=== PATIENT | male | born 1990 | race African-American/Black ===

== ENCOUNTER 2017-04-30 07:14 | Emergency (ER) | payer SELFPAY ==
[~2017-04-30] VITALS: Ht 177.8 cm; Wt 86.0 kg
[2017-04-30 07:16] VITALS: Ht 177.8 cm; Wt 86.0 kg
[2017-04-30] MEDS ORDERED: morphine 4 MG/ML VIAL IV STA ×2 (07:25→09:47)
[2017-04-30] MEDS ORDERED: ONDANSETRON 4 MG INJ IV STA ×2 (07:25→09:47)
[2017-04-30] MEDS ORDERED: SOD CHLORIDE 0.9% 1,000 ML IV ONE (07:43)
[2017-04-30 07:48] LABS: BASOPHILS % 0.2 % (0.0-2.0); EOSINOPHILS # 0.2 10^3/ul (0.0-0.5); EOSINOPHILS % 2.3 % (0.0-7.0); HEMATOCRIT 46.5 % (42.0-52.0); HEMOGLOBIN 15.3 g/dl (14.0-18.0); LYMPHOCYTES # 2.6 10^3/ul (0.8-2.9); LYMPHOCYTES % 27.2 % (15.0-51.0); MEAN CORPUSCULAR HEMOGLOBIN 31.5 pg (29.0-33.0); MEAN CORPUSCULAR HGB CONC 32.9 g/dl (32.0-37.0); MEAN CORPUSCULAR VOLUME 95.7 fl (82.0-101.0); MEAN PLATELET VOLUME 9.6 fl (7.4-10.4); MONOCYTE # 0.8 10^3/ul (0.3-0.9); MONOCYTES % 8.6 % (0.0-11.0); NEUTROPHIL # 5.9 10^3/ul (1.6-7.5); NEUTROPHILS % 61.5 % (39.0-77.0); PLATELET COUNT 250 10^3/UL (140-415); RED BLOOD COUNT 4.86 10^6/ul (4.70-6.10); RED CELL DISTRIBUTION WIDTH 12.7 % (11.5-14.5); WHITE BLOOD COUNT 9.6 10^3/ul (4.8-10.8)
[2017-04-30] MEDS ORDERED: LORAZEPAM 2 MG INJ IV ONE (08:00)
[2017-04-30] MEDS ORDERED: KETOROLAC 30 MG INJ IV STA (08:00)
[2017-04-30 08:35] LABS: ALBUMIN 4.4 g/dl (3.3-4.9); ALBUMIN/GLOBULIN RATIO 1.76; BILIRUBIN,INDIRECT 0.7 mg/dl (0-1.1); BILIRUBIN,TOTAL 0.7 mg/dl (0.2-1.3); CALCIUM 9.2 mg/dl (8.4-10.2); CREATININE 0.81 mg/dl (0.61-1.24); POTASSIUM 3.8 mmol/L (3.5-5.1); TOTAL PROTEIN 6.9 g/dl (6.1-8.1)
[2017-04-30] MEDS ORDERED: IOHEXOL 300MG/ML 150 ML BTL ONE (08:46)
[2017-04-30] MEDS ORDERED: SOD CHLORIDE 0.9% 100 ML ONE (08:46)
[2017-04-30 09:31] LABS: ADD UMIC YES; UR AMORPHOUS CRYSTAL MANY /HPF (NONE SEEN); UR ASCORBIC ACID NEGATIVE (NEGATIVE); UR BILIRUBIN (Dip) NEGATIVE (NEGATIVE); UR BLOOD (Dip) NEGATIVE (NEGATIVE); UR CLARITY CLOUDY (CLEAR); UR COLOR YELLOW (YELLOW); UR GLUCOSE (Dip) NEGATIVE (NEGATIVE); UR KETONES (Dip) NEGATIVE (NEGATIVE); UR LEUKOCYTE ESTERASE (Dip) NEGATIVE Leu/ul (NEGATIVE); UR NITRITE (Dip) NEGATIVE (NEGATIVE); UR RBC 3 /HPF (0-5); UR SPECIFIC GRAVITY (Dip) 1.025 (1.003-1.030); UR TOTAL PROTEIN (Dip) NEGATIVE (NEGATIVE); UR UROBILINOGEN (Dip) NEGATIVE (NEGATIVE)
--- NOTE | 2017-04-30 09:43 | RADRPT ---
PROCEDURE: CT abdomen and pelvis with contrast. CLINICAL INDICATION: Abdominal pain. Nausea and vomiting. TECHNIQUE: CT of the abdomen/pelvis was performed utilizing axial images with reconstructions in s agittal and coronal planes following the intravenous administration of 90 cc of Omnipaque-300. contr ast. The administered radiation dose is CTDI 7.03 mGy, DLP 433.11 mGy-cm. One or more of the followi ng dose reduction techniques were used: Automated exposure control, Adjustment of the mA and/or kV a ccording to patient size, or Use of iterative reconstruction technique. COMPARISON: There are no similar studies submitted for comparison. FINDINGS: Lung bases: The lung bases are clear.The heart is normal size without pericardial effusion. CT ABDOMEN: Gastrointestinal tract: There is no bowel obstruction.The appendix is normal size without inflammato ry changes.No abnormal colonic wall thickening is identified.There is no pneumoperitoneum. Liver: The liver is normal in size. There is a 1 cm area of hypoattenuation within the left hepatic lobe anteriorly (image 47 series 2) which is indeterminate but may represent focal fat. There is no intrahepatic ductal dilatation. Gallbladder: The gallbladder is grossly unremarkable. Pancreas: The pancreas is grossly unremarkable. Spleen: The spleen is normal in size without focal lesion. Kidneys: The kidneys are normal in size and contour.No renal calculi are identified.There is no evid ence of hydronephrosis. Adrenal glands: The bilateral adrenal glands are unremarkable. Retroperitoneum: There is no retroperitoneal adenopathy.The aorta is normal in caliber. CT PELVIS: Pelvic organs: The prostate is mildly enlarged measuring 5 cm. Bladder: The bladder is unremarkable. There is no pelvic free fluid.No pelvic adenopathy is identified. Osseous structures: No destructive lytic or blastic osseous lesion is identified. IMPRESSION: 1. No acute abdominal pathology. 2. Mildly enlarged prostate. Correlate with PSA and digital rectal examination. 3. There is a 1 cm area of hypoattenuation within the left hepatic lobe anteriorly which is indeterm inate but may represent focal fat. Further findings as detailed above. RPTAT: PP .Waldemar Smith MD, MD Date Time Electronically viewed and signed by .Waldemar Smith MD, on 04/30/2017 09:43 .F/
[2017-04-30] MEDS ORDERED: FAMO-96 PO (09:49)
[2017-04-30] MEDS ORDERED: ONDA8TAB14 PO (09:49)
--- NOTE | 2017-04-30 09:54 | ERD ---
ER Documentation Chief Complaint Date/Time DATE: 04/30/17 TIME: 09:50 Chief Complaint abd pain with vomiting since 0400 am HPI This 19-year-old male presents with generalized abdominal pain and vomiting since early this morning. Patient denies any alcohol use. Denies any fevers or diarrhea or urinary complaints. Patient denies any previous abdominal problems. He is nonbilious nonbloody. ROS All systems reviewed and are negative except as per history of present illness. Medications Home Meds Active Scripts Famotidine* (Pepcid*) 20 Mg Tablet, 20 MG PO BID for 7 Days, #15 TAB Prov:RAFAEL PARSON MD 04/30/17 Ondansetron (Ondansetron Odt) 8 Mg Tab.rapdis, 8 MG PO Q6H Y for NAUSEA AND/OR VOMITING, #6 TAB Prov:RAFAEL PARSON MD 04/30/17 Allergies Allergies: Coded Allergies: No Known Allergy (Unverified , 04/30/17) PMhx/Soc History of Surgery: Yes (right arm surgery) Anesthesia Reaction: No Hx Neurological Disorder: No Hx Respiratory Disorders: No Hx Cardiac Disorders: No Hx Psychiatric Problems: No Hx Miscellaneous Medical Probl: Yes (gastritis) Hx Alcohol Use: Yes Hx Substance Use: Yes Hx Tobacco Use: Yes Smoking Status: Never smoker Physical Exam Vitals Vital Signs Date Time Temp Pulse Resp B/P Pulse Ox O2 Delivery O2 Flow Rate FiO2 04/30/17 07:16 98.0 66 18 158/77 98 Physical Exam Const: [] Alert, moaning in discomfort. Head: Atraumatic Eyes: Normal Conjunctiva ENT: Normal External Ears, Nose and Mouth. Neck: Full range of motion..~ No meningismus. Resp: Clear to auscultation bilaterally Cardio: Regular rate and rhythm, no murmurs Abd: Soft, mild generalized abdominal tenderness without focal tenderness at McBurney's point no Kendrick sign. No appreciable rebound. non distended. Normal bowel sounds Skin: No petechiae or rashes Back: No midline or flank tenderness Ext: No cyanosis, or edema Neur: Awake and alert Psych: Normal Mood and Affect Result Diagram: 04/30/17 0739 04/30/17 0739 Results 24 hrs Laboratory Tests Test 04/30/17 07:39 04/30/17 09:12 White Blood Count 9.610^3/ul Red Blood Count 4.8610^6/ul Hemoglobin 15.3g/dl Hematocrit 46.5% Mean Corpuscular Volume 95.7fl Mean Corpuscular Hemoglobin 31.5pg Mean Corpuscular Hemoglobin Concent 32.9g/dl Red Cell Distribution Width 12.7% Platelet Count 52914^3/UL Mean Platelet Volume 9.6fl Neutrophils % 61.5% Lymphocytes % 27.2% Monocytes % 8.6% Eosinophils % 2.3% Basophils % 0.2% Nucleated Red Blood Cells % 0.0/100WBC Neutrophils # 5.910^3/ul Lymphocytes # 2.610^3/ul Monocytes # 0.810^3/ul Eosinophils # 0.210^3/ul Basophils # 0.010^3/ul Nucleated Red Blood Cells # 0.010^3/ul Sodium Level 144mmol/L Potassium Level 3.8mmol/L Chloride Level 108mmol/L Carbon Dioxide Level 26mmol/L Anion Gap 14 Blood Urea Nitrogen 12mg/dl Creatinine 0.81mg/dl Glucose Level 101mg/dl Calcium Level 9.2mg/dl Total Bilirubin 0.7mg/dl Direct Bilirubin 0.00mg/dl Indirect Bilirubin 0.7mg/dl Aspartate Amino Transf (AST/SGOT) 164IU/L Alanine Aminotransferase (ALT/SGPT) 65IU/L Alkaline Phosphatase 73IU/L Total Protein 6.9g/dl Albumin 4.4g/dl Globulin 2.50g/dl Albumin/Globulin Ratio 1.76 Lipase 93U/L Urine Color YELLOW Urine Clarity CLOUDY Urine pH 7.0 Urine Specific [place] 1.025 Urine Ketones NEGATIVEmg/dL Urine Nitrite NEGATIVEmg/dL Urine Bilirubin NEGATIVEmg/dL Urine Urobilinogen NEGATIVEmg/dL Urine Leukocyte Esterase NEGATIVELeu/ul Urine Microscopic RBC 3/HPF Urine Microscopic WBC 1/HPF Urine Amorphous Crystals MANY/HPF Urine Hemoglobin NEGATIVEmg/dL Urine Glucose NEGATIVEmg/dL Urine Total Protein NEGATIVEmg/dl Current Medications Medications (Trade) Dose Ordered Sig/Sarath Route PRN Reason Start Time Stop Time Status Last Admin Dose Admin Morphine Sulfate (morphine) 4 mg ONCE STAT IV 04/30/17 07:25 04/30/17 07:27 DC 04/30/17 07:35 Ondansetron HCl 4 mg 4 mg ONCE STAT IV 10/15/17 07:25 04/30/17 07:27 DC 04/30/17 07:34 Sodium Chloride (NS) 1,000 ml @ 0 mls/hr Q0M ONCE IV 04/30/17 07:43 04/30/17 07:44 DC 04/30/17 07:46 Ketorolac Tromethamine (Toradol) 30 mg ONCE STAT IV 04/30/17 08:00 04/30/17 08:01 DC 04/30/17 08:04 Lorazepam (Ativan) 1 mg ONCE ONCE IV 04/30/17 08:00 04/30/17 08:01 DC 04/30/17 08:05 Iohexol 150 ml 150 ml STK-MED ONCE .ROUTE 04/30/17 08:46 04/30/17 08:47 DC Sodium Chloride (NS) 100 ml @ ud STK-MED ONCE .ROUTE 04/30/17 08:46 04/30/17 08:47 DC Morphine Sulfate (morphine) 4 mg ONCE STAT IV 04/30/17 09:47 04/30/17 09:48 DC 04/30/17 09:57 Ondansetron HCl (Zofran Inj) 4 mg ONCE STAT IV 04/30/17 09:47 04/30/17 09:48 DC 04/30/17 09:57 Procedures/MDM Patient presents with vomiting and abdominal pain of uncertain etiology. Patient was given morphine 4 mg IV and Zofran 4 mg IV 2 throughout the ED course. Is also given Toradol 30 mg IV. Patient was given Ativan 1 mg IV for retching after Zofran. Was given 1 L normal saline IV. CBC, CMP and lipase normal. Patient continued to moan without subjective change in abdominal pain throughout ED course. CT abdomen pelvis with IV contrast shows no acute abnormalities. Patient was noted to have normal pulse rate and ambulatory with questionable guarding throughout the ED course. Patient had no appreciable CURES report or MIRTHA information, however patient did not present ID or social security number, raising possibility of drug-seeking behavior or cyclical vomiting syndrome. She had no active vomiting throughout ED course although continued to complain of generalized abdominal pain despite adequate IV pain medication. Patient will be discharged home without any identifiable emergent etiology for his stated complaints. Advised to follow-up with primary doctor otherwise recheck as necessary for blood, fevers, additional symptoms. Current signs or symptoms to suggest pneumonia, appendicitis, mesenteric artery ischemia , obstruction, pancreatitis, acute abdomen. Patient never had any identifiable SIRS criteria. Departure Diagnosis: Primary Impression: Abdominal pain Abdominal location: unspecified location Qualified Code: R10.9 - Abdominal pain, unspecified abdominal location Condition: Stable Patient Instructions: Abdominal Pain Additional Instructions: All examinations normal today. Recommend follow-up with primary doctor. Recheck otherwise for blood, new or worsening symptoms. RAFAEL PARSON MD Apr 30, 2017 09:54
[2017-04-30 10:57] VITALS: BP 131/72; PULSE 78; RESP 16; TEMP 98.2
== END 2017-04-30 11:01 | disposition home or self-care (01) ==
LOC: FTE 07:14
DX: R10.84 Generalized abdominal pain (principal); Z87.891 Personal history of nicotine dependence
CPT/HCPCS: 36415; 74177; 80053; 81001; 83690; 85025; 96374; 96375; 96376; 99285; J1885; J2060; J2270; J2405; J7030; Q9967

== ENCOUNTER 2017-05-09 04:57 | Emergency (ER) | payer SELFPAY ==
[~2017-05-09] VITALS: Ht 175.3 cm; Wt 86.4 kg
[~2017-05-09 04:57] MED LIST: FAMO-96 PO; ONDA8TAB14 PO
[2017-05-09 05:02] VITALS: Ht 175.3 cm; Wt 86.4 kg
[2017-05-09] MEDS ORDERED: ONDANSETRON 4 MG INJ IV STA (05:37)
[2017-05-09] MEDS ORDERED: morphine 4 MG/ML VIAL IV STA (05:37)
[2017-05-09] MEDS ORDERED: SOD CHLORIDE 0.9% 500 ML IV STA ×2 (05:37→06:21)
[2017-05-09] MEDS ORDERED: BELLADONNA/PHENOBARBITAL TAB PO STA (06:21)
[2017-05-09] MEDS ORDERED: LIDOCAINE/MYLANTA 40 ML BTL PO STA (06:21)
[2017-05-09] MEDS ORDERED: FAMOTIDINE 20 MG INJ IV STA (06:21)
[2017-05-09] MEDS ORDERED: LORAZEPAM 2 MG INJ IV ONE (06:30)
--- NOTE | 2017-05-09 06:33 | ERD ---
ER Documentation Chief Complaint Chief Complaint AP W/ VOMITING SINCE 3:30AM DENIES DIARRHEA. HPI This is a 27-year-old male who presents with abdominal pain. The patient is a very limited and difficult historian. He states that around 3 AM this morning he started to have epigastric abdominal pain with nonbloody nonbilious emesis. No diarrhea or constipation. He describes at least 2 years of chronic and similar abdominal pain. He states he has had endoscopy in the past that showed gastritis. He has not had a colonoscopy. The patient was here recently with full workup including CT of the abdomen and pelvis that was unrevealing. The patient was initially found resting comfortably but when I walked in the room he is writhing in pain. He describes 10 out of 10 pain currently. No mid back pain. He states his usual triggers are caffeine, alcohol, fatty foods. ROS All systems reviewed and are negative except as per history of present illness. Medications Home Meds Active Scripts Omeprazole* (Omeprazole*) 20 Mg Capsule.dr, 20 MG PO DAILY, #30 Prov:ZENON PETERSON MD 05/09/17 Discontinued Scripts Famotidine* (Pepcid*) 20 Mg Tablet, 20 MG PO BID for 7 Days, #15 TAB Prov:RAFAEL PARSON MD 04/30/17 Ondansetron (Ondansetron Odt) 8 Mg Tab.rapdis, 8 MG PO Q6H Y for NAUSEA AND/OR VOMITING, #6 TAB Prov:RAFAEL PARSON MD 04/30/17 Allergies Allergies: Coded Allergies: No Known Allergy (Unverified , 05/09/17) PMhx/Soc History of Surgery: Yes (right arm surgery) Anesthesia Reaction: No Hx Neurological Disorder: No Hx Respiratory Disorders: No Hx Cardiac Disorders: No Hx Psychiatric Problems: No Hx Miscellaneous Medical Probl: Yes (gastritis) Hx Alcohol Use: Yes Hx Substance Use: Yes Hx Tobacco Use: Yes Smoking Status: Current every day smoker FmHx Family History: No diabetes Physical Exam Vitals Vital Signs Date Time Temp Pulse Resp B/P Pulse Ox O2 Delivery O2 Flow Rate FiO2 05/09/17 06:18 97.6 82 22 141/85 100 05/09/17 05:02 97.6 80 22 140/90 100 Physical Exam General: Uncomfortable but inconsistent Head: Normocephalic, atraumatic. Eyes: Pupils equally reactive, EOM intact ENT: Moist mucous membranes Neck: Supple, no lymphadenopathy Respiratory: Lungs clear bilaterally, no distress Cardiovascular: RRR, no murmurs, rubs, or gallops Abdominal: Soft, mild tenderness to the epigastrium, negative Kendrick sign, no tenderness to McBurney's point, no peritonitis : No inguinal hernia, no testicular swelling MSK: No edema, no unilateral swelling, 5/5 strength Neurologic: Alert and oriented, moving all extremities, normal speech, no focal weakness, no cerebellar signs Skin: No rash Psych: Normal mood Result Diagram: 05/09/1715 05/09/1715 Results 24 hrs Laboratory Tests Test 05/09/17 06:15 White Blood Count 15.210^3/ul Red Blood Count 5.0810^6/ul Hemoglobin 15.6g/dl Hematocrit 47.1% Mean Corpuscular Volume 92.7fl Mean Corpuscular Hemoglobin 30.7pg Mean Corpuscular Hemoglobin Concent 33.1g/dl Red Cell Distribution Width 12.9% Platelet Count 51382^3/UL Mean Platelet Volume 9.9fl Neutrophils % 86.6% Lymphocytes % 7.5% Monocytes % 4.4% Eosinophils % 1.0% Basophils % 0.1% Nucleated Red Blood Cells % 0.0/100WBC Neutrophils # 13.110^3/ul Lymphocytes # 1.110^3/ul Monocytes # 0.710^3/ul Eosinophils # 0.210^3/ul Basophils # 0.010^3/ul Nucleated Red Blood Cells # 0.010^3/ul Sodium Level 146mmol/L Potassium Level 3.5mmol/L Chloride Level 107mmol/L Carbon Dioxide Level 27mmol/L Anion Gap 16 Blood Urea Nitrogen 7mg/dl Creatinine 0.80mg/dl Glucose Level 114mg/dl Calcium Level 9.2mg/dl Total Bilirubin 0.1mg/dl Direct Bilirubin 0.00mg/dl Indirect Bilirubin 0.1mg/dl Aspartate Amino Transf (AST/SGOT) 32IU/L Alanine Aminotransferase (ALT/SGPT) 46IU/L Alkaline Phosphatase 83IU/L Total Protein 8.3g/dl Albumin 5.0g/dl Globulin 3.30g/dl Albumin/Globulin Ratio 1.51 Lipase 193U/L Current Medications Medications (Trade) Dose Ordered Sig/Sarath Route PRN Reason Start Time Stop Time Status Last Admin Dose Admin Sodium Chloride (NS) 500 ml @ 500 mls/hr Q1H STAT IV 05/09/17 05:37 05/09/17 06:36 DC 05/09/17 06:21 Morphine Sulfate (morphine) 4 mg ONCE STAT IV 05/09/17 05:37 05/09/17 05:38 DC 05/09/17 06:21 Ondansetron HCl 4 mg 4 mg ONCE STAT IV 05/09/17 05:37 05/09/17 05:38 DC 05/09/17 06:21 Sodium Chloride (NS) 500 ml @ 500 mls/hr Q1H STAT IV 05/09/17 06:21 05/09/17 07:20 DC 05/09/17 06:49 Famotidine (Pepcid Iv) 20 mg ONCE STAT IV 05/09/17 06:21 05/09/17 06:22 DC 05/09/17 06:49 Miscellaneous Medication (Gi Cocktail (2)) 40 ml ONCE STAT PO 05/09/17 06:21 05/09/17 06:22 DC 05/09/17 06:49 Belladonna/ Phenobarbital () 2 tab ONCE STAT PO 05/09/17 06:21 05/09/17 06:22 DC 05/09/17 06:49 Lorazepam (Ativan) 1 mg ONCE ONCE IV 05/09/17 06:30 05/09/17 06:31 DC 05/09/17 06:49 Procedures/MDM EKG, MONITORS, & DIAGNOSTIC IMAGING: CT abdomen and pelvis: IMPRESSION: 2 mm nonobstructing left mid kidney renal stone is present with no ureteral stones or hydronephrosis bilaterally. No evidence of bowel obstruction or inflammation. There is no appendicitis. LAB INTERPRETATION: Leukocytosis that is likely secondary to stress response, otherwise normal laboratory findings. MEDICAL DECISION MAKING: The patient presents with epigastric abdominal pain. He describes at least 2 years of this pain. The patient exhibits some concerning presentation and signs and symptoms that are worrisome for drug-seeking behavior. The patient had received morphine prior to my arrival. The patient's abdominal exam is mostly benign. He had a recent workup done including negative CT imaging and normal laboratory testing. However, given that the patient is describing 10 out of 10 pain. Repeat imaging is appropriate. The patient's CURES database and MIRTHA report do not reveal any recent visits to the local area. I would like to avoid unnecessary and aggressive narcotic use in this patient. I believe this is most consistent with gastric process such as gastritis, peptic ulcer disease or reflux. There is chronicity to his symptoms. The patient will benefit from a GI cocktail and Ativan. I have very low clinical concern for bowel obstruction, cardiac process, acute cholecystitis or other acute intracranial process such as appendicitis. No evidence of acute testicular process. ER COURSE: The patient has a renal stone on CT that is likely incidental. This is not the etiology of the patient's pain. The patient's symptoms are improved with GI cocktail and Ativan. At this time I feel the patient can be safely discharged home. I do not want to initiate narcotics in this patient as I believe this is a slippery slope and the patient is at significant risk for narcotic abuse and addiction. Patient absolutely needs to follow-up with a manager of drilling for his chronic abdominal pain. The patient will be started on a PPI. At this point he is safe for discharge. His symptoms are improved. I kept the patient and/or family informed of laboratory and diagnostic imaging results throughout the emergency room course. DISPOSITION PLAN: We discussed follow up with the patient's primary care doctor within 24 to 48 hours as needed. We also discussed return to the emergency room for worsening symptoms or worsening condition. Outpatient referral: Gastroenterology Discharge Medications: Prilosec Departure Diagnosis: Primary Impression: Abdominal pain Abdominal location: epigastric Qualified Code: R10.13 - Epigastric pain Additional Impressions: Leukocytosis Leukocytosis type: unspecified Qualified Code: D72.829 - Leukocytosis, unspecified type Chronic abdominal pain Condition: Stable ZENON PETERSON MD May 09, 2017 06:33
[2017-05-09 06:53] LABS: BASOPHILS % 0.1 % (0.0-2.0); EOSINOPHILS # 0.2 10^3/ul (0.0-0.5); HEMATOCRIT 47.1 % (42.0-52.0); HEMOGLOBIN 15.6 g/dl (14.0-18.0); LYMPHOCYTES # 1.1 10^3/ul (0.8-2.9); LYMPHOCYTES % 7.5 % (15.0-51.0); MEAN CORPUSCULAR HEMOGLOBIN 30.7 pg (29.0-33.0); MEAN CORPUSCULAR HGB CONC 33.1 g/dl (32.0-37.0); MEAN CORPUSCULAR VOLUME 92.7 fl (82.0-101.0); MEAN PLATELET VOLUME 9.9 fl (7.4-10.4); MONOCYTE # 0.7 10^3/ul (0.3-0.9); MONOCYTES % 4.4 % (0.0-11.0); NEUTROPHIL # 13.1 10^3/ul (1.6-7.5); NEUTROPHILS % 86.6 % (39.0-77.0); PLATELET COUNT 283 10^3/UL (140-415); RED BLOOD COUNT 5.08 10^6/ul (4.70-6.10); RED CELL DISTRIBUTION WIDTH 12.9 % (11.5-14.5); WHITE BLOOD COUNT 15.2 10^3/ul (4.8-10.8)
[2017-05-09 07:23] LABS: ALBUMIN/GLOBULIN RATIO 1.51; BILIRUBIN,INDIRECT 0.1 mg/dl (0-1.1); BILIRUBIN,TOTAL 0.1 mg/dl (0.2-1.3); CALCIUM 9.2 mg/dl (8.4-10.2); CREATININE 0.8 mg/dl (0.61-1.24); POTASSIUM 3.5 mmol/L (3.5-5.1); TOTAL PROTEIN 8.3 g/dl (6.1-8.1)
--- NOTE | 2017-05-09 07:32 | RADRPT ---
PROCEDURE: CT abdomen and pelvis without contrast. CLINICAL INDICATION: Abdominal pain. TECHNIQUE: CT scan of the abdomen and pelvis without contrast was performed on a multi-slice CT [facility] . Sagittal and coronal reformatted images were obtained from the axial source images. One or more of the following dose reduction techniques were used: - Automated exposure control. - Adjustment of the mA and/or kV according to patient size. - Use of iterative reconstruction technique. DLP 493.2 mGycm. CTDIvol 7.8 mGy COMPARISON: 04/30/2017 FINDINGS: The lung bases are clear. there are There is limited evaluation of the solid viscera from the lack of IV contrast. There is a 2 mm left mid kidney nonobstructing renal stone. No right-sided renal calculi are present . There are no ureteral stones bilaterally with no evidence of hydronephrosis. There is uniform density of the liver with no gross focal lesion or biliary ductal dilatation. The gallbladder is unremarkable without inflammation. The spleen is unremarkable without mass. The adrenal glands are within normal limits without mass. The pancreas is unremarkable without focal lesion or surrounding inflammatory changes. There is no bowel obstruction or focal bowel inflammation. The appendix is unremarkable. There is no free air or free fluid. There are no enlarged lymph nodes. The aorta is unremarkable and there is no acute osseous abnormality. The prostate is grossly unremarkable. IMPRESSION: 2 mm nonobstructing left mid kidney renal stone is present with no ureteral stones or hydronephrosis bilaterally. No evidence of bowel obstruction or inflammation. There is no appendicitis. RPTAT: AA .Emilio Guerrier MD, MD Date Time Electronically viewed and signed by .Emilio Guerrier MD, MD on 05/09/2017 07:31 .Bassem/
[2017-05-09] MEDS ORDERED: OMEP20CA16 PO (08:20)
[2017-05-09 08:54] VITALS: BP 124/84; PULSE 87; RESP 17; TEMP 98.2
== END 2017-05-09 08:55 | disposition home or self-care (01) ==
LOC: E/R 04:57
DX: R10.13 Epigastric pain (principal); D72.829 Elevated white blood cell count, unspecified; F17.210 Nicotine dependence, cigarettes, uncomplicated
CPT/HCPCS: 36415; 74176; 80053; 83690; 85025; 96374; 96375; 99285; J2060; J2270; J2405; J7040

== ENCOUNTER 2017-06-09 07:30 | Emergency (ER) | payer MEDICAID ==
[~2017-06-09] VITALS: Ht 175.3 cm; Wt 76.5 kg
[~2017-06-09 07:30] MED LIST changes: -FAMO-96 PO; +OMEP20CA16 PO; -ONDA8TAB14 PO
[2017-06-09 07:32] VITALS: Ht 175.3 cm; Wt 76.5 kg
[2017-06-09] MEDS ORDERED: ONDANSETRON (ODT) 4 MG TAB ODT STA (07:43)
--- NOTE | 2017-06-09 07:53 | ERD ---
ER Documentation Chief Complaint Chief Complaint ABD PAIN, ONSET LAST NIGHT, PREVIOUS VISITS WITH SAME S/S HPI 27-year-old male who presents emergency department for abdominal pain started last night. Had a nonbloody and nonbilious emesis couple of times last night. Added that he had a questionable blood in urine 2 days ago. Patient is a poor historian and not consistent. Was here last May 09, had a CT of the abdomen and pelvis that revealed 2 mm nonobstructing left mid kidney stone. Was recently diagnosed with gastritis and was started on PPI. Denies headache, dizziness, blurry vision, neck pain, throat pain, difficulty swallowing, shoulder pain, chest pain, back pain, constipation, diarrhea, difficulty walking due to abdominal pain, blood in stool, recent exposure to any illness, recent long travel, recent travel, recent antibiotic use in the last 3 months, trauma, injury, falls, numbness or tingling sensation, fever, chills. ROS All systems reviewed and are negative except as per history of present illness. Medications Home Meds Active Scripts Acetaminophen* (Tylophen*) 500 Mg Capsule, 1 CAP PO Q6H Y for PAIN AND OR ELEVATED TEMP, #20 CAP Prov:DIONY EAGLE F 06/09/17 Ondansetron Hcl* (Zofran*) 4 Mg Tablet, 4 MG PO Q8H Y for NAUSEA AND/OR VOMITING , #30 TAB Prov:KRISTOPHERILABANKAMRYNAR F 06/09/17 Omeprazole* (Omeprazole*) 40 Mg Capsule., 40 MG PO DAILY, #30 CAP Prov:KRISTOPHERILABANKAMRYNAR F 06/09/17 Omeprazole* (Omeprazole*) 20 Mg Capsule., 20 MG PO DAILY, #30 Prov:ZENON PETERSON MD 05/09/17 Allergies Allergies: Coded Allergies: No Known Allergy (Unverified , 06/09/17) PMhx/Soc History of Surgery: Yes (right arm surgery) Anesthesia Reaction: No Hx Neurological Disorder: No Hx Respiratory Disorders: No Hx Cardiac Disorders: No Hx Psychiatric Problems: No Hx Miscellaneous Medical Probl: Yes (gastritis) Hx Alcohol Use: Yes Hx Substance Use: No Hx Tobacco Use: Yes Smoking Status: Current every day smoker Physical Exam Vitals Vital Signs Date Time Temp Pulse Resp B/P Pulse Ox O2 Delivery O2 Flow Rate FiO2 06/09/17 07:32 97.0 64 18 142/100 99 Physical Exam Const: [] Head: Atraumatic Eyes: Normal Conjunctiva ENT: Normal External Ears, Nose and Mouth. Neck: Full range of motion..~ No meningismus. Resp: Clear to auscultation bilaterally Cardio: Regular rate and rhythm, no murmurs Abd: Soft, non distended. Normal bowel sounds. Epigastric tenderness on light and deep palpation. Right-sided CVA tenderness. Able to jump 10 times without developing right lower abdominal pain. No difficulty walking. Skin: No petechiae or rashes Back: No midline or flank tenderness Ext: No cyanosis, or edema Neur: Awake and alert Psych: Normal Mood and Affect Result Diagram: 06/09/17 0805 06/09/17 0935 Results 24 hrs Laboratory Tests Test 06/09/17 08:05 06/09/17 09:35 06/09/17 10:54 White Blood Count 10.610^3/ul Red Blood Count 5.0310^6/ul Hemoglobin 15.9g/dl Hematocrit 47.0% Mean Corpuscular Volume 93.4fl Mean Corpuscular Hemoglobin 31.6pg Mean Corpuscular Hemoglobin Concent 33.8g/dl Red Cell Distribution Width 12.7% Platelet Count 81742^3/UL Mean Platelet Volume 10.5fl Neutrophils % 80.0% Lymphocytes % 13.1% Monocytes % 4.4% Eosinophils % 1.9% Basophils % 0.1% Nucleated Red Blood Cells % 0.0/100WBC Neutrophils # 8.510^3/ul Lymphocytes # 1.410^3/ul Monocytes # 0.510^3/ul Eosinophils # 0.210^3/ul Basophils # 0.010^3/ul Nucleated Red Blood Cells # 0.010^3/ul Sodium Level 145mmol/L Potassium Level 3.6mmol/L Chloride Level 106mmol/L Carbon Dioxide Level 28mmol/L Anion Gap 15 Blood Urea Nitrogen 11mg/dl Creatinine 0.78mg/dl Glucose Level 117mg/dl Calcium Level 9.5mg/dl Total Bilirubin 0.3mg/dl Direct Bilirubin 0.00mg/dl Indirect Bilirubin 0.3mg/dl Aspartate Amino Transf (AST/SGOT) 28IU/L Alanine Aminotransferase (ALT/SGPT) 44IU/L Alkaline Phosphatase 84IU/L Total Protein 7.7g/dl Albumin 4.4g/dl Globulin 3.30g/dl Albumin/Globulin Ratio 1.33 Amylase Level 84U/L Lipase 114U/L Urine Color YELLOW Urine Clarity CLEAR Urine pH 6.0 Urine Specific [place] 1.020 Urine Ketones TRACEmg/dL Urine Nitrite NEGATIVEmg/dL Urine Bilirubin NEGATIVEmg/dL Urine Urobilinogen NEGATIVEmg/dL Urine Leukocyte Esterase NEGATIVELeu/ul Urine Hemoglobin NEGATIVEmg/dL Urine Glucose NEGATIVEmg/dL Urine Total Protein NEGATIVEmg/dl Current Medications Medications (Trade) Dose Ordered Sig/Sarath Route PRN Reason Start Time Stop Time Status Last Admin Dose Admin Ondansetron HCl (Zofran Odt) 4 mg ONCE STAT ODT 06/09/17 07:43 06/09/17 07:47 DC 06/09/17 07:52 Miscellaneous Medication 40 ml 40 ml ONCE ONCE PO 06/09/17 08:00 06/09/17 08:01 DC 06/09/17 07:53 Sodium Chloride (NS) 500 ml @ 500 mls/hr Q1H ONCE IV 06/09/17 08:00 06/09/17 08:59 DC 06/09/17 08:05 Morphine Sulfate (morphine) 4 mg ONCE STAT IV 06/09/17 07:59 06/09/17 08:00 DC 06/09/17 08:04 Pantoprazole (Protonix Iv) 40 mg ONCE ONCE IV 06/09/17 08:30 06/09/17 08:31 DC 06/09/17 08:14 Lorazepam (Ativan) 1 mg ONCE ONCE IV 06/09/17 09:00 06/09/17 09:01 DC 06/09/17 08:53 Metoclopramide HCl (Reglan) 10 mg ONCE ONCE IV 06/09/17 09:00 06/09/17 09:01 DC 06/09/17 08:50 Hydromorphone HCl (Dilaudid) 1 mg ONCE STAT IV 06/09/17 09:51 06/09/17 09:52 DC 06/09/17 10:01 Procedures/MDM 27-year-old male who presents emergency department for abdominal pain started last night. Had a nonbloody and nonbilious emesis couple of times last night. Added that he had a questionable blood in urine 2 days ago. Patient is a poor historian and not consistent. Was here last May 09, had a CT of the abdomen and pelvis that revealed 2 mm nonobstructing left mid kidney stone. Was recently diagnosed with gastritis and was started on PPI. Denies headache, dizziness, blurry vision, neck pain, throat pain, difficulty swallowing, shoulder pain, chest pain, back pain, constipation, diarrhea, difficulty walking due to abdominal pain, but in stool, recent exposure to any illness, recent long travel, recent travel, recent antibiotic use in the last 3 months, trauma, injury, falls, numbness or tingling sensation, fever, chills. No known drug allergies. Past medical history of gastritis. No surgical history. Medication: Reviewed. Social: Not working at this time. Smokes medical marijuana. Denies smoking cigarettes, use of alcoholic beverages, use of illegal drugs. Physical exam: Epigastric tenderness on light and deep palpation. Right-sided CVA tenderness. Able to jump 10 times without developing right lower abdominal pain. No difficulty walking. Disease process was explained to the patient. He verbalized understanding and agreed with the diagnostic test, treatment, plan of care. Abdominal ultrasound: Incomplete study. The patient refused continued due to pain, uncooperative. The visualized portions of the liver and pancreas unremarkable. The remainder of the abdomen was not seen. Blood works: Reviewed. Urinalysis: Reviewed. Treatment: Zofran ODT. GI cocktail p.o. IV insertion. Normal saline 500 cc bolus IV. Morphine IV. Reevaluation: Denies headache, dizziness, blurry vision, neck pain, throat pain , difficulty swallowing, shoulder pain, chest pain, back pain, abdominal pain. No episode of emesis here in the emergency department. There is no right upper/ right lower/epigastric/left upper/left lower abdominal tenderness light and deep palpation. Negative on psoas sign. Negative Michelle sign. Negative on Rovsing's sign. Able to jump 10 times without developing right lower abdominal pain. Ambulatory with steady gait and without difficulty and without pain. No CVA tenderness. No signs of peritoneal irritation. Stated that he feels much better this time. No neurological deficits. No neurovascular deficits. Differential diagnosis: Pancreatitis versus cholecystitis versus diverticulitis versus nephrolithiasis versus hydronephrosis versus gastritis versus GERD versus urinary tract infection Final diagnosis: Abdominal pain, gastritis Prescription: Omeprazole. Zofran. Tylenol. Follow-up with PCP in the next 24-48 hours. PCP to refer patient to quality supervisor in the next 48-72 hours. PCP to refer patient to urologist in the next 48-72 hours. Come back here in the emergency department for any new symptoms or any worsening of symptoms. All questions and concerns are answered. Patient verbalized understanding and agreed with the plan of care. Hemodynamically stable on discharge. Departure Diagnosis: Primary Impression: Abdominal pain Additional Impression: Gastritis Condition: Stable Additional Instructions: Follow-up with PCP in the next 24-48 hours. PCP to refer patient to quality supervisor in the next 48-72 hours. PCP to refer patient to urologist in the next 48-72 hours. Come back here in the emergency department for any new symptoms or any worsening of symptoms. All questions and concerns are answered. Patient verbalized understanding and agreed with the plan of care. DIONY EAGLE Jun 09, 2017 07:53
[2017-06-09] MEDS ORDERED: morphine 4 MG/ML VIAL IV STA (07:59)
[2017-06-09] MEDS ORDERED: SOD CHLORIDE 0.9% 500 ML IV ONE (08:00)
[2017-06-09] MEDS ORDERED: LIDOCAINE/MYLANTA 40 ML BTL PO ONE (08:00)
[2017-06-09] MEDS ORDERED: PANTOPRAZOLE 40 MG INJ IV ONE (08:30)
--- NOTE | 2017-06-09 08:39 | RADRPT ---
PROCEDURE: US Abdomen and retroperitoneal complete. CLINICAL INDICATION: abdominal pain TECHNIQUE: Multiple real-time images were acquired of the patient's abdomen and retroperitoneum ut ilizing a high resolution transducer. COMPARISON: 05/09/2017 FINDINGS: The study is incomplete. The patient refused to continue secondary to pain. The liver demonstrates normal echogenicity. The liver is normal in size and no focal solid lesions are seen. No intrahepatic biliary dilatation is seen. The liver measures 14.7 cm in length. The visualized portions of the pancreas are unremarkable. The tail of the pancreas is not seen. The proximal aorta measures 1.7 cm in transverse dimension. RPTAT: AA IMPRESSION: Incomplete study. The patient refused continue due to pain, uncooperative. Visualized portions of the liver and pancreas are unremarkable. The remainder of the abdomen was not seen. .Tyrell Reyes MD, MD Date Time Electronically viewed and signed by .Tyrell Reyes MD, on 06/09/2017 08:39 .S/
[2017-06-09 08:53] LABS: BASOPHILS % 0.1 % (0.0-2.0); EOSINOPHILS # 0.2 10^3/ul (0.0-0.5); EOSINOPHILS % 1.9 % (0.0-7.0); HEMOGLOBIN 15.9 g/dl (14.0-18.0); LYMPHOCYTES # 1.4 10^3/ul (0.8-2.9); LYMPHOCYTES % 13.1 % (15.0-51.0); MEAN CORPUSCULAR HEMOGLOBIN 31.6 pg (29.0-33.0); MEAN CORPUSCULAR HGB CONC 33.8 g/dl (32.0-37.0); MEAN CORPUSCULAR VOLUME 93.4 fl (82.0-101.0); MEAN PLATELET VOLUME 10.5 fl (7.4-10.4); MONOCYTE # 0.5 10^3/ul (0.3-0.9); MONOCYTES % 4.4 % (0.0-11.0); NEUTROPHIL # 8.5 10^3/ul (1.6-7.5); PLATELET COUNT 228 10^3/UL (140-415); RED BLOOD COUNT 5.03 10^6/ul (4.70-6.10); RED CELL DISTRIBUTION WIDTH 12.7 % (11.5-14.5); WHITE BLOOD COUNT 10.6 10^3/ul (4.8-10.8)
[2017-06-09] MEDS ORDERED: METOCLOPRAMIDE 10 MG INJ IV ONE (09:00)
[2017-06-09] MEDS ORDERED: LORAZEPAM 2 MG INJ IV ONE (09:00)
[2017-06-09] MEDS ORDERED: HYDROmorphONE 1 MG/ML SYG IV STA (09:51)
[2017-06-09 10:20] LABS: ALBUMIN 4.4 g/dl (3.3-4.9); ALBUMIN/GLOBULIN RATIO 1.33; BILIRUBIN,INDIRECT 0.3 mg/dl (0-1.1); BILIRUBIN,TOTAL 0.3 mg/dl (0.2-1.3); CALCIUM 9.5 mg/dl (8.4-10.2); CREATININE 0.78 mg/dl (0.61-1.24); POTASSIUM 3.6 mmol/L (3.5-5.1); TOTAL PROTEIN 7.7 g/dl (6.1-8.1)
[2017-06-09 11:29] LABS: ADD UMIC NO; UR ASCORBIC ACID NEGATIVE (NEGATIVE); UR BILIRUBIN (Dip) NEGATIVE (NEGATIVE); UR BLOOD (Dip) NEGATIVE (NEGATIVE); UR CLARITY CLEAR (CLEAR); UR COLOR YELLOW (YELLOW); UR GLUCOSE (Dip) NEGATIVE (NEGATIVE); UR KETONES (Dip) TRACE mg/dL (NEGATIVE); UR LEUKOCYTE ESTERASE (Dip) NEGATIVE Leu/ul (NEGATIVE); UR NITRITE (Dip) NEGATIVE (NEGATIVE); UR TOTAL PROTEIN (Dip) NEGATIVE (NEGATIVE); UR UROBILINOGEN (Dip) NEGATIVE (NEGATIVE)
[2017-06-09] MEDS ORDERED: ONDA4TAB8 PO (11:35)
[2017-06-09] MEDS ORDERED: ACET500C5 PO (11:35)
[2017-06-09] MEDS ORDERED: OMEP40CA6 PO (11:35)
== END 2017-06-09 12:08 | disposition home or self-care (01) ==
LOC: FTE 07:30
DX: K29.70 Gastritis, unspecified, without bleeding (principal); F17.210 Nicotine dependence, cigarettes, uncomplicated
CPT/HCPCS: 76700; 80053; 81003; 82150; 83690; 85025; 96374; 96375; C9113; J1170; J2060; J2270; J2765; J7040; Z7502; Z7610